=== PATIENT | female | born 1970 | race Caucasian/White ===

== ENCOUNTER 2017-01-26 19:20 | Emergency (ER) | payer SELFPAY ==
[~2017-01-26 19:20] MED LIST: CELE20TA PO; CYCL-36 PO; LORT5TAB PO; TRAM50 PO; ZANA4CAP PO
[2017-01-26 19:22] VITALS: BP 158/89; PULSE 87; RESP 15; TEMP 97.6; O2SAT 98
--- NOTE | 2017-01-26 20:08 | PD ---
HPI Chief Complaint: Cold / Flu Symptoms Time Seen by Provider: 20:07 Travel History International Travel<30 days: Yes Contact w/Intl Traveler<30days: Yes Name of Country Traveled to: [place] Traveled to known affect area: No History of Present Illness HPI 46 old female, with history of asthma, presents to the emergency Department with complaint of cough since the end of November. Office worse at night. She was seen at [facility] 3 days after onset of the cough and was given antibiotics and steroids, which she took with continued cough. 2 weeks ago she was seen again at [facility] and a chest x-ray was done and normal per the patient. She was given a narcotic cough medicine which was helping her sleep at night, but now is making her more awake. Denies fevers, nasal congestion, throat pain, ear pain, chest pain, chest tightness, shortness of breath. Reports vomiting secondary to cough exacerbations a couple times. Reports occasional wheezing and subsides with use of her albuterol inhaler. She last used her inhaler at 1 PM today. No known aggravating factors. She does not have an established primary care provider. Allergies to aspirin, naproxen, penicillin, baby powder, adhesive tape. History of asthma. Has no other medical complaints. No other modifying factors or associated signs and symptoms. PFSH Past Medical History Asthma: Yes Autoimmune Disease: No Anxiety: Yes Depression: Yes Cancer: No Cardiovascular Problems: No Diabetes: No Diminished Hearing: No GERD: Yes (BEFORE ANDRE) Genitourinary: Yes Kidney Stones: Yes Musculoskeletal: Yes Neurologic: Yes (VERTIGO) Reproductive: No Respiratory: Yes Thyroid Disease: No ?: Not Tubal Ligation: Yes Past Surgical History Abdominal Surgery: Yes (ANDRE, APPY) Appendectomy: Yes Gynecologic Surgery: Yes (T.L., HYSTERECTOMY AND BLADDER LIFT) Hysterectomy: Yes Social History Alcohol Use: Yes (RARE) Tobacco Use: No Allergies-Medications (Allergen,Severity, Reaction): Coded Allergies: naproxen (Unverified Allergy, Severe, TONGUE SWELLS, 01/26/17) aspirin (Unverified Allergy, Mild, UNKNOWN, 01/26/17) penicillin G (Unverified Allergy, Mild, UNKNOWN, 01/26/17) Uncoded Allergies: BABY POWDER (Allergy, Severe, HIVES, SOB, THROAT CLOSES, 06/19/08) ADHESIVE TAPE (Adverse Reaction, Severe, TONG SKIN, 05/20/10) Reported Meds & Prescriptions Reported Meds & Active Scripts Active Tessalon Perles (Benzonatate) 100 Mg Cap 100 Mg PO TID PRN Azithromycin 500 Mg Tab 500 Mg PO DAILY Ventolin Hfa 18 GM Inh (Albuterol Sulfate) 90 Mcg/Act Aer 2 Puff INH Q4-6H PRN Deltasone (Prednisone) 20 Mg Tab 40 Mg PO DAILY Reported Flexeril (Cyclobenzaprine HCl) 10 Mg Tab 10 Mg PO TID FOR MUSCLE SPASMS Lortab 5/500 (Acetaminophen/Hydrocodone Bitart) 5 Mg/500 Mg Tab 1-2 Tab PO Q4- 6HPRN FOR PAIN Celexa (Citalopram Hydrobromide) 20 Mg Tab 30 Mg PO HS Ultram (Tramadol HCl) 50 Mg Tab 100 Mg PO Q6HPRN FOR PAIN Zanaflex 4 mg capsule (Tizanidine HCl) 4 Mg Cap 4 Mg PO Q6 Review of Systems Except as stated in HPI: all other systems reviewed are Neg Physical Exam Narrative GENERAL: Well-nourished, well-developed female patient, in no acute distress; afebrile, nontoxic-appearing SKIN: Warm and dry. No rash. HEAD: Atraumatic. Normocephalic. EYES: Pupils equal and round. No scleral icterus. No injection or drainage. ENT: Mucosa pink and moist. No erythema or exudates. No uvular edema. No uvular , palatal, or tonsillar deviation. Airway patent. EARS: Bilateral pinnae and external canals appear within normal limits. Bilateral tympanic membranes without erythema, dullness or perforation. NECK: Trachea midline. No lymphadenopathy. CARDIOVASCULAR: Regular rate and rhythm. No murmur appreciated. RESPIRATORY: No accessory muscle use. Clear to auscultation. Breath sounds equal bilaterally. No retractions or tachypnea. GASTROINTESTINAL: Abdomen soft, non-tender, nondistended. Hepatic and splenic margins not palpable. Bowel sounds are active 4 quadrants. MUSCULOSKELETAL: No obvious deformities. No clubbing. No cyanosis. No edema. NEUROLOGICAL: Awake and alert. Oriented 3. No obvious cranial nerve deficits. Motor grossly within normal limits. Normal speech. Moves all extremities. 5/5 strength to all extremities. PSYCHIATRIC: Appropriate mood and affect; insight and judgment normal. Data Data Last Documented VS Vital Signs Date Time Temp Pulse Resp B/P (MAP) Pulse Ox O2 Delivery O2 Flow Rate FiO2 01/26/17 19:22 97.6 87 15 158/89 (112) 98 Room Air Orders Orders Ed Discharge Order (01/26/17 20:13) MDM Medical Decision Making Medical Screen Exam Complete: Yes Emergency Medical Condition: Yes Medical Record Reviewed: Yes Differential Diagnosis Chronic cough, bronchitis, asthma exacerbation, pneumonia Narrative Course 46-year-old female, with history of asthma, with cough since the end of November. She's been treated with antibiotics, steroids, narcotic cough medication. She had a chest x-ray 2 weeks ago at [facility] which was normal per the patient. I offered to repeat the chest x-ray and the patient declined. The patient is in no acute distress. No retractions or tachypnea. No wheezing on auscultation of the lungs; are clear and equal throughout. I discussed treatments with the patient and she would like to try another course of antibiotics and oral steroids. Azithromycin and Deltasone prescribed for home. Ventolin inhaler prescribed for home. Instructed patient to follow up with [facility]. Information provided. Instructed patient to follow up with physics faculty member as needed. Instructed patient to follow up with primary care provider. Patient verbalizes understanding and agreement with treatment plan. Patient is medically cleared and stable for discharge. Discussed reasons to return to the emergency department. Patient agrees with treatment plan. The patients vital signs are stable and the patient is stable for outpatient follow-up and treatment. Patient discharged home, stable and in no acute distress. Diagnosis Primary Impression: Cough Referrals: [facility] Primary Care Physician Business Systems Manager Patient Instructions: Asthma (ED), Chronic Cough (ED), General Instructions Additional Instructions: Use Albuterol inhaler as prescribed Take oral steroids as prescribed and complete full course Use Tessalon Perles as prescribed to decrease coughing spasms [id number] decongestants or antihistamines as directed and as needed for symptom management Your cough can last 4-6 weeks Drink plenty of fluids to prevent dehydration Use hot air humidifier to decrease cough exacerbation Turn off ceiling fans and sleep with head of bed elevated Avoid triggers such as second hand smoke, dust, known allergens Follow-up with your primary care provider Return to the emergency department immediately with worsening of symptoms Med/Other Pt SpecificInfo: Prescription(s) given Scripts Benzonatate (Tessalon Perles) 100 Mg Cap 100 MG PO TID Y for COUGH, #15 CAP 0 Refills Prov: Thu Lin 01/26/17 Azithromycin (Azithromycin) 500 Mg Tab 500 MG PO DAILY for Infection, #5 TAB 0 Refills Prov: Thu Lin 01/26/17 Albuterol 18 GM Inh (Ventolin Hfa 18 GM Inh) 90 Mcg/Act Aer 2 PUFF INH Q4-6H Y for SOB/WHEEZING, #1 INHALER 0 Refills Prov: Thu Lin 01/26/17 Prednisone (Deltasone) 20 Mg Tab 40 MG PO DAILY, #30 TAB 0 Refills Prov: Thu Lin 01/26/17 Disposition: 01 DISCHARGE HOME Condition: Stable Thu Lin Jan 26, 2017 20:08
[2017-01-26] MEDS ORDERED: AZIT500T2 PO (20:12)
[2017-01-26] MEDS ORDERED: VENTAER INH (20:12)
[2017-01-26] MEDS ORDERED: BENZ100 PO (20:12)
[2017-01-26] MEDS ORDERED: PRED-503 PO (20:12)
== END 2017-01-26 20:23 | disposition home or self-care (01) ==
LOC: NEPK 19:20
DX: R05 Cough (principal)
CPT/HCPCS: 99284